=== PATIENT | male | born 1960 | race Native Hawaiian/Other Pacific Islander ===

== ENCOUNTER 2016-12-12 06:56 | Emergency (ER) | payer BC ==
[~2016-12-12] VITALS: Ht 177.8 cm; Wt 83.9 kg
[~2016-12-12 06:56] MED LIST: ASA LOW DOSE81 MG PO; ATORVASTATIN PO; CLOPIDOGREL75 MG PO; LISI10TA11; METOPROLOL25 MG PO
[2016-12-12 07:09] VITALS: TEMP 98.3
[2016-12-12 07:47] LABS: PLATELET COUNT 199 K/uL (142-355)
[2016-12-12 07:56] LABS: POTASSIUM 4.1 mmol/L (3.6-5.2); SODIUM 136 mmol/L (136-145)
[2016-12-12 10:00] VITALS: BP 157/86
== END 2016-12-12 10:27 | disposition home or self-care (01) ==
LOC: ED 06:56
DX: R31.0 Gross hematuria (principal); N28.89 Other specified disorders of kidney and ureter; R91.8 Other nonspecific abnormal finding of lung field
CPT/HCPCS: 80053; 81000; 85027; 99284; J1885; Q9963